=== PATIENT | male | born 1990 | race Caucasian/White ===

== ENCOUNTER 2016-11-12 21:38 | Inpatient (IN) | payer MEDICAID, OTHER ==
[~2016-11-12] VITALS: Ht 175.3 cm; Wt 59.8 kg
[2016-11-12] MEDS ORDERED: SODIUM CHLORIDE 0.9% 1,000ML IVBOLUS ONE (23:30)
[2016-11-13] MEDS ORDERED: CEFTAROLINE 600 MG in SODIUM CHLORIDE 0.9% 100 ML IV ONE (00:30)
[2016-11-13] MEDS ORDERED: IBUP-1222 PO (00:36)
[2016-11-13] MEDS ORDERED: SULF1TAB24 PO (00:36)
[2016-11-13 00:58] LABS: HEMATOCRIT 42.2 % (39.2-51.8); HEMOGLOBIN 14.4 g/dL (13.7-18.0); WHITE BLOOD COUNT 14.5 x10^3/uL (3.4-10)
[2016-11-13] MEDS ORDERED: LIDOCAINE 1%, 20ML ONE (01:11)
[2016-11-13] MEDS ORDERED: ONDANSETRON 2MG/ML, 2ML ONE (01:13)
[2016-11-13] MEDS ORDERED: MORPHINE SULFATE 4 MG/ML, 1ML ONE (01:13)
[2016-11-13] MEDS ORDERED: ONDANSETRON 2MG/ML, 2ML IVPush ONE (01:30)
[2016-11-13] MEDS ORDERED: MORPHINE SULFATE 4 MG/ML, 1ML IVPush PRN ×3 (01:30→18:30)
[2016-11-13] MEDS ORDERED: LIDOCAINE 1%, 20ML SQ ONE (01:30)
[2016-11-13 02:01] LABS: BLOOD UREA NITROGEN 15 mg/dL (7-18)
[2016-11-13] MEDS ORDERED: SODIUM CHLORIDE 0.9% 1,000 ML IV ONE (02:21)
[2016-11-13] MEDS ORDERED: ONDANSETRON 2MG/ML, 2ML IVPush PRN ×2 (02:30→04:00)
[2016-11-13] MEDS ORDERED: POTASSIUM CHLORIDE 20 MEQ in LACTATED RINGERS 1,000 ML IV SCH (03:35)
[2016-11-13] MEDS ORDERED: BISACODYL 10 MG SUPP PR PRN (04:00)
[2016-11-13] MEDS ORDERED: ACETAMINOPHEN 325 MG TABLET PO PRN (04:00)
[2016-11-13] MEDS: ENOXAPARIN 40 MG/0.4 ML SQ SCH (04:00)
[2016-11-13] MEDS ORDERED: DOCUSATE 100 MG CAPSULE PO PRN (04:00)
[2016-11-13] MEDS: CEFTAROLINE 600 MG in SODIUM CHLORIDE 0.9% 100 ML IV SCH ×2 (04:00→19:30)
[2016-11-13] MEDS ORDERED: POLYETHYLENE GLYCOL 17 GM PACKET PO PRN (04:00)
[2016-11-13 05:32] VITALS: BP 127/52
[2016-11-13 07:15] VITALS: BP 143/51
[2016-11-13 13:11] VITALS: BP 131/70
[2016-11-13] MEDS ORDERED: morphine SULFATE 10 MG/ML, 1ML IVPush ONE (14:30)
[2016-11-13] MEDS ORDERED: LORazepam 2 MG/ML, 1ML IVPush ONE (16:30)
[2016-11-13] MEDS ORDERED: OMNIPAQUE 350 MG/ML, 100ML BOTTLE ONE (18:15)
[2016-11-13 20:38] VITALS: BP 109/68
[2016-11-14 02:59] VITALS: BP 126/80
[2016-11-14] MEDS: ENOXAPARIN 40 MG/0.4 ML SQ SCH (04:00)
[2016-11-14 04:35] LABS: HEMATOCRIT 42.7 % (39.2-51.8); HEMOGLOBIN 14.3 g/dL (13.7-18.0); WHITE BLOOD COUNT 13.3 x10^3/uL (3.4-10)
[2016-11-14 04:50] LABS: BLOOD UREA NITROGEN 9 mg/dL (7-18)
[2016-11-14] MEDS: CEFTAROLINE 600 MG in SODIUM CHLORIDE 0.9% 100 ML IV SCH ×2 (08:04→19:15)
[2016-11-14 08:30] VITALS: BP 120/76
[2016-11-14] MEDS ORDERED: MIDAZOLAM 1 MG/ML, 2ML ONE (13:55)
[2016-11-14] MEDS ORDERED: FENTANYL PF 100 MCG/2ML ONE (13:55)
[2016-11-14 13:59] VITALS: BP 109/64
[2016-11-14] MEDS ORDERED: PROPOFOL 10 MG/ML, 20ML ONE (15:26)
[2016-11-14] MEDS ORDERED: ONDANSETRON 2MG/ML, 2ML ONE (15:26)
[2016-11-14] MEDS ORDERED: HYDROmorphone 1 MG/ML, 1ML ONE (15:45)
[2016-11-14] MEDS ORDERED: OXYcodone 5 MG/5 ML ORAL.SOL UDC ONE (16:28)
[2016-11-14] MEDS ORDERED: KETOROLAC 30 MG/1 ML IV PRN (16:30)
[2016-11-14] MEDS ORDERED: FENTANYL PF 100 MCG/2ML IV PRN (16:30)
[2016-11-14] MEDS ORDERED: HYDROcodone/APAP 7.5-325MG/15ML UDC PO PRN (16:30)
[2016-11-14] MEDS ORDERED: HYDROmorphone 1 MG/ML, 1ML IV PRN (16:30)
[2016-11-14] MEDS ORDERED: ONDANSETRON 2MG/ML, 2ML IVPush PRN (16:30)
[2016-11-14] MEDS ORDERED: MEPERIDINE/PF 25MG/0.5ML IVPush PRN (16:30)
[2016-11-14] MEDS ORDERED: OXYcodone 5 MG/5 ML ORAL.SOL UDC PO PRN (16:30)
[2016-11-14] MEDS ORDERED: MIDAZOLAM 1 MG/ML, 2ML IV PRN (16:30)
[2016-11-14] MEDS ORDERED: PROMETHAZINE 25 MG/ML, 1ML IV PRN (16:30)
[2016-11-14] MEDS ORDERED: ACETAMINOPHEN 325 MG TABLET PO PRN (16:30)
[2016-11-14 19:37] VITALS: BP 127/64
[2016-11-15 03:08] VITALS: BP 99/61
[2016-11-15] MEDS: ENOXAPARIN 40 MG/0.4 ML SQ SCH (04:08)
[2016-11-15 07:16] VITALS: BP 119/62
[2016-11-15] MEDS: CEFTAROLINE 600 MG in SODIUM CHLORIDE 0.9% 100 ML IV SCH ×2 (08:37→19:59)
[2016-11-15 13:43] VITALS: BP 112/62
[2016-11-15] MEDS ORDERED: ONDANSETRON 2MG/ML, 2ML IVPush PRN (15:00)
[2016-11-15] MEDS ORDERED: POLYETHYLENE GLYCOL 17 GM PACKET PO PRN (15:00)
[2016-11-15] MEDS ORDERED: BISACODYL 10 MG SUPP PR PRN (15:00)
[2016-11-15] MEDS ORDERED: DOCUSATE 100 MG CAPSULE PO PRN (15:00)
[2016-11-15 19:50] VITALS: BP 114/62
[2016-11-15] MEDS: ORAJEL 7GM TUBE MM PRN (22:12)
[2016-11-16 01:25] VITALS: BP 137/76
[2016-11-16] MEDS: ENOXAPARIN 40 MG/0.4 ML SQ SCH (03:21)
[2016-11-16] MEDS: ORAJEL 7GM TUBE MM PRN ×3 (03:21→19:43)
[2016-11-16] MEDS: ACETAMINOPHEN 325 MG TABLET PO PRN (04:18)
[2016-11-16] MEDS: MORPHINE SULFATE 4 MG/ML, 1ML IVPush PRN ×2 (04:42→13:49)
[2016-11-16 05:19] LABS: HEMATOCRIT 41.8 % (39.2-51.8); HEMOGLOBIN 13.9 g/dL (13.7-18.0); WHITE BLOOD COUNT 10.2 x10^3/uL (3.4-10)
[2016-11-16 05:22] LABS: BLOOD UREA NITROGEN 5 mg/dL (7-18)
[2016-11-16 06:42] VITALS: BP 119/73
[2016-11-16] MEDS: CEFTAROLINE 600 MG in SODIUM CHLORIDE 0.9% 100 ML IV SCH ×2 (07:58→19:43)
[2016-11-16 14:10] VITALS: BP 127/69
[2016-11-16 20:05] VITALS: BP 127/58
[2016-11-17 01:09] VITALS: BP 139/66
[2016-11-17] MEDS: ORAJEL 7GM TUBE MM PRN (01:26)
[2016-11-17] MEDS: ENOXAPARIN 40 MG/0.4 ML SQ SCH ×2 (02:49→03:44)
[2016-11-17 07:00] VITALS: BP 117/58
[2016-11-17] MEDS: CEFTAROLINE 600 MG in SODIUM CHLORIDE 0.9% 100 ML IV SCH ×2 (08:11→20:10)
[2016-11-17 12:25] VITALS: BP 131/58
[2016-11-17] MEDS: ACETAMINOPHEN 325 MG TABLET PO PRN (13:05)
[2016-11-17 19:32] VITALS: BP 130/65
[2016-11-18] MEDS: ENOXAPARIN 40 MG/0.4 ML SQ SCH (04:00)
[2016-11-18 05:43] VITALS: BP 130/70
[2016-11-18] MEDS: CEFTAROLINE 600 MG in SODIUM CHLORIDE 0.9% 100 ML IV SCH ×2 (07:57→19:45)
[2016-11-18 08:01] VITALS: BP 127/79
[2016-11-18] MEDS: MORPHINE SULFATE 4 MG/ML, 1ML IVPush PRN (14:46)
[2016-11-18 15:35] VITALS: BP 102/58
[2016-11-18 18:49] VITALS: BP 112/59
[2016-11-19 01:02] VITALS: BP 113/55
[2016-11-19] MEDS: ENOXAPARIN 40 MG/0.4 ML SQ SCH (03:42)
[2016-11-19 07:11] VITALS: BP 119/65
[2016-11-19] MEDS: CEFTAROLINE 600 MG in SODIUM CHLORIDE 0.9% 100 ML IV SCH ×2 (09:14→21:12)
[2016-11-19 14:00] VITALS: BP 113/55
[2016-11-19 16:48] VITALS: BP 112/55
[2016-11-19 19:34] VITALS: BP 121/59
[2016-11-20 02:00] VITALS: BP 128/66
[2016-11-20] MEDS: ENOXAPARIN 40 MG/0.4 ML SQ SCH (04:00)
[2016-11-20 07:55] VITALS: BP 110/62
[2016-11-20] MEDS: CEFTAROLINE 600 MG in SODIUM CHLORIDE 0.9% 100 ML IV SCH ×2 (09:23→20:22)
[2016-11-20 14:35] VITALS: BP 107/51
[2016-11-20 19:27] VITALS: BP 107/69
[2016-11-21 03:41] VITALS: BP 101/62
[2016-11-21] MEDS: ENOXAPARIN 40 MG/0.4 ML SQ SCH (04:00)
[2016-11-21] MEDS: ACETAMINOPHEN 325 MG TABLET PO PRN ×2 (06:00→19:28)
[2016-11-21] MEDS: DIPHENHYDRAMINE 25 MG CAPSULE PO SCH ×3 (06:00→18:25)
[2016-11-21 06:05] VITALS: BP 105/68
[2016-11-21 07:12] LABS: HEMATOCRIT 45.1 % (39.2-51.8); WHITE BLOOD COUNT 10.6 x10^3/uL (3.4-10)
[2016-11-21 07:23] LABS: BLOOD UREA NITROGEN 14 mg/dL (7-18)
[2016-11-21] MEDS: CEFTAROLINE 600 MG in SODIUM CHLORIDE 0.9% 100 ML IV SCH (08:14)
[2016-11-21 14:30] VITALS: BP 151/71
[2016-11-21] MEDS ORDERED: FAMOTIDINE 20 MG TABLET PO ONE (16:00)
[2016-11-21] MEDS ORDERED: DIPHENHYDRAMINE/ZINC CRM 2%, 30GM TP PRN (17:30)
[2016-11-21] MEDS: CLINDAMYCIN PMX 600MG/50ML 50 ML IV SCH (18:02)
[2016-11-21] MEDS: LACTOBACILLUS 1GM/ PACKET PO SCH ×2 (18:02→21:00)
[2016-11-21 19:02] VITALS: BP 112/71
[2016-11-22] MEDS: CLINDAMYCIN PMX 600MG/50ML 50 ML IV SCH ×3 (00:33→17:00)
[2016-11-22] MEDS: DIPHENHYDRAMINE 25 MG CAPSULE PO SCH ×4 (00:34→17:00)
[2016-11-22 02:00] VITALS: BP 123/77
[2016-11-22] MEDS: ENOXAPARIN 40 MG/0.4 ML SQ SCH (04:00)
[2016-11-22 04:19] VITALS: BP 123/77
[2016-11-22 08:43] VITALS: BP 101/59
[2016-11-22] MEDS: LACTOBACILLUS 1GM/ PACKET PO SCH ×3 (08:48→20:50)
[2016-11-22 14:00] VITALS: BP 130/66
[2016-11-22] MEDS ORDERED: DOCUSATE 100 MG CAPSULE PO PRN (15:00)
[2016-11-22] MEDS ORDERED: ONDANSETRON 2MG/ML, 2ML IVPush PRN (15:00)
[2016-11-22] MEDS ORDERED: POLYETHYLENE GLYCOL 17 GM PACKET PO PRN (15:00)
[2016-11-22] MEDS ORDERED: BISACODYL 10 MG SUPP PR PRN (15:00)
[2016-11-22 19:38] VITALS: BP 121/64
[2016-11-23] MEDS: DIPHENHYDRAMINE 25 MG CAPSULE PO SCH ×4 (00:27→18:13)
[2016-11-23] MEDS: CLINDAMYCIN PMX 600MG/50ML 50 ML IV SCH ×3 (00:27→17:25)
[2016-11-23 00:58] VITALS: BP 130/75
[2016-11-23] MEDS: ENOXAPARIN 40 MG/0.4 ML SQ SCH (03:21)
[2016-11-23] MEDS: LACTOBACILLUS 1GM/ PACKET PO SCH ×3 (08:59→21:24)
[2016-11-23 10:04] VITALS: BP 89/49
[2016-11-23 10:16] VITALS: BP 94/53
[2016-11-23] MEDS ORDERED: MEGESTROL ORAL.SUSP 40 MG/ML PO SCH (12:00)
[2016-11-23 14:03] VITALS: BP 138/71
[2016-11-23 19:10] VITALS: BP 124/75
[2016-11-24] MEDS: DIPHENHYDRAMINE 25 MG CAPSULE PO SCH ×4 (00:24→17:13)
[2016-11-24] MEDS: CLINDAMYCIN PMX 600MG/50ML 50 ML IV SCH ×3 (00:24→17:12)
[2016-11-24 01:06] VITALS: BP 121/72
[2016-11-24] MEDS: ENOXAPARIN 40 MG/0.4 ML SQ SCH (05:55)
[2016-11-24 08:00] VITALS: BP 91/56
[2016-11-24] MEDS: LACTOBACILLUS 1GM/ PACKET PO SCH ×3 (08:47→20:22)
[2016-11-24 14:00] VITALS: BP 123/61
[2016-11-24 19:12] VITALS: BP 117/64
[2016-11-25] MEDS: CLINDAMYCIN PMX 600MG/50ML 50 ML IV SCH ×3 (00:02→18:00)
[2016-11-25] MEDS: DIPHENHYDRAMINE 25 MG CAPSULE PO SCH ×3 (00:03→12:00)
[2016-11-25] MEDS: ENOXAPARIN 40 MG/0.4 ML SQ SCH (00:08)
[2016-11-25 05:20] VITALS: BP 109/72
[2016-11-25 08:32] VITALS: BP 108/58
[2016-11-25] MEDS: LACTOBACILLUS 1GM/ PACKET PO SCH ×3 (09:34→20:40)
[2016-11-25 15:40] VITALS: BP 119/61
[2016-11-25] MEDS ORDERED: DIPHENHYDRAMINE 25 MG CAPSULE PO PRN (18:00)
[2016-11-25 19:33] VITALS: BP 111/57
[2016-11-26 00:57] VITALS: BP 112/50
[2016-11-26] MEDS: CLINDAMYCIN PMX 600MG/50ML 50 ML IV SCH ×3 (02:00→18:23)
[2016-11-26] MEDS: ENOXAPARIN 40 MG/0.4 ML SQ SCH (03:55)
[2016-11-26 06:50] VITALS: BP 107/56
[2016-11-26] MEDS: LACTOBACILLUS 1GM/ PACKET PO SCH ×3 (10:20→20:35)
[2016-11-26 13:36] VITALS: BP 111/64
[2016-11-26 18:42] VITALS: BP 125/64
[2016-11-27 01:15] VITALS: BP 128/63
[2016-11-27] MEDS: CLINDAMYCIN PMX 600MG/50ML 50 ML IV SCH ×2 (02:22→11:21)
[2016-11-27] MEDS: ENOXAPARIN 40 MG/0.4 ML SQ SCH (04:00)
[2016-11-27 06:36] VITALS: BP 93/56
[2016-11-27 09:14] LABS: HEMATOCRIT 42.6 % (39.2-51.8); HEMOGLOBIN 14.3 g/dL (13.7-18.0); WHITE BLOOD COUNT 7.8 x10^3/uL (3.4-10)
[2016-11-27 09:17] LABS: BLOOD UREA NITROGEN 16 mg/dL (7-18)
[2016-11-27] MEDS: LACTOBACILLUS 1GM/ PACKET PO SCH ×3 (11:22→20:20)
[2016-11-27 12:40] VITALS: BP 115/54
[2016-11-27] MEDS: CLINDAMYCIN 300 MG CAPSULE PO SCH ×2 (17:50→23:49)
[2016-11-27 18:47] VITALS: BP 134/55
[2016-11-28] MEDS: ENOXAPARIN 40 MG/0.4 ML SQ SCH (03:41)
[2016-11-28 04:00] VITALS: BP 98/59
[2016-11-28] MEDS: CLINDAMYCIN 300 MG CAPSULE PO SCH ×4 (05:39→23:59)
[2016-11-28 07:01] VITALS: BP_SYST 106; BP_DIAS 53; BP_DIAS 62
[2016-11-28] MEDS: LACTOBACILLUS 1GM/ PACKET PO SCH ×3 (09:57→22:55)
[2016-11-28 14:00] VITALS: BP 106/68
[2016-11-28 18:31] VITALS: BP 108/68
[2016-11-29] VITALS: BP 109/66
[2016-11-29] MEDS: ENOXAPARIN 40 MG/0.4 ML SQ SCH (04:00)
[2016-11-29] MEDS: CLINDAMYCIN 300 MG CAPSULE PO SCH ×3 (06:11→17:44)
[2016-11-29 08:00] VITALS: BP 109/70
[2016-11-29] MEDS: LACTOBACILLUS 1GM/ PACKET PO SCH ×3 (11:22→21:30)
[2016-11-29] MEDS ORDERED: MEGESTROL 40MG TABLET PO SCH (12:30)
[2016-11-29] MEDS ORDERED: MEGESTROL ACETATE 400 MG/10 ML ML PO SCH (12:58)
[2016-11-29 13:52] VITALS: BP 112/67
[2016-11-29 19:40] VITALS: BP 133/77
[2016-11-29] MEDS ORDERED: BISACODYL 10 MG SUPP PR PRN (20:00)
[2016-11-29] MEDS ORDERED: DOCUSATE 100 MG CAPSULE PO PRN (20:00)
[2016-11-29] MEDS ORDERED: ONDANSETRON 2MG/ML, 2ML IVPush PRN (20:00)
[2016-11-29] MEDS ORDERED: POLYETHYLENE GLYCOL 17 GM PACKET PO PRN (20:00)
[2016-11-30] MEDS: CLINDAMYCIN 300 MG CAPSULE PO SCH ×5 (00:19→23:36)
[2016-11-30 01:47] VITALS: BP 112/66
[2016-11-30] MEDS: ENOXAPARIN 40 MG/0.4 ML SQ SCH (04:00)
[2016-11-30 08:36] VITALS: BP 95/59
[2016-11-30] MEDS: LACTOBACILLUS 1GM/ PACKET PO SCH ×3 (10:16→20:53)
[2016-11-30] MEDS: MEGESTROL ACETATE 400 MG/10 ML ML PO SCH (10:58)
[2016-11-30 15:40] VITALS: BP 100/54
[2016-11-30 20:52] VITALS: BP 110/59
[2016-12-01 01:35] VITALS: BP 106/56
[2016-12-01] MEDS: ENOXAPARIN 40 MG/0.4 ML SQ SCH (04:00)
[2016-12-01] MEDS: CLINDAMYCIN 300 MG CAPSULE PO SCH ×4 (05:38→22:39)
[2016-12-01 06:30] VITALS: BP 106/58
[2016-12-01] MEDS: LACTOBACILLUS 1GM/ PACKET PO SCH ×3 (09:33→20:18)
[2016-12-01] MEDS: MEGESTROL ACETATE 400 MG/10 ML ML PO SCH (09:33)
[2016-12-01 13:45] VITALS: BP 121/61
[2016-12-01 19:58] VITALS: BP 128/66
[2016-12-02] MEDS: ENOXAPARIN 40 MG/0.4 ML SQ SCH (04:00)
[2016-12-02] MEDS: CLINDAMYCIN 300 MG CAPSULE PO SCH ×3 (06:00→19:10)
[2016-12-02 08:00] VITALS: BP 103/63
[2016-12-02] MEDS: LACTOBACILLUS 1GM/ PACKET PO SCH ×3 (11:05→19:10)
[2016-12-02] MEDS: MEGESTROL ACETATE 400 MG/10 ML ML PO SCH (11:06)
[2016-12-02 13:56] VITALS: BP 96/57
[2016-12-02 20:00] VITALS: BP 143/62
[2016-12-03 03:00] VITALS: BP 110/62
[2016-12-03] MEDS: ENOXAPARIN 40 MG/0.4 ML SQ SCH (04:00)
[2016-12-03] MEDS: CLINDAMYCIN 300 MG CAPSULE PO SCH ×4 (06:00→17:01)
[2016-12-03] MEDS: LACTOBACILLUS 1GM/ PACKET PO SCH ×3 (08:06→19:41)
[2016-12-03] MEDS: MEGESTROL ACETATE 400 MG/10 ML ML PO SCH (08:06)
[2016-12-03 08:12] VITALS: BP 132/68
[2016-12-03 12:56] VITALS: BP 124/67
[2016-12-03 18:25] VITALS: BP 118/67
[2016-12-04] MEDS: CLINDAMYCIN 300 MG CAPSULE PO SCH ×4 (00:01→19:51)
[2016-12-04 03:33] VITALS: BP 100/55
[2016-12-04 08:05] VITALS: BP 132/63
[2016-12-04 08:09] LABS: HEMATOCRIT 43.3 % (39.2-51.8); HEMOGLOBIN 14.4 g/dL (13.7-18.0); WHITE BLOOD COUNT 8.5 x10^3/uL (3.4-10)
[2016-12-04 08:17] LABS: BLOOD UREA NITROGEN 18 mg/dL (7-18)
[2016-12-04] MEDS: ENOXAPARIN 40 MG/0.4 ML SQ SCH (09:00)
[2016-12-04] MEDS: LACTOBACILLUS 1GM/ PACKET PO SCH ×3 (10:45→19:51)
[2016-12-04 14:00] VITALS: BP 124/67
[2016-12-04 19:39] VITALS: BP 111/61
[2016-12-05 02:05] VITALS: BP 121/67
[2016-12-05] MEDS: CLINDAMYCIN 300 MG CAPSULE PO SCH ×4 (02:07→20:08)
[2016-12-05 07:41] VITALS: BP 109/63
[2016-12-05] MEDS: LACTOBACILLUS 1GM/ PACKET PO SCH ×3 (08:36→20:08)
[2016-12-05] MEDS: ENOXAPARIN 40 MG/0.4 ML SQ SCH (08:37)
[2016-12-05 14:30] VITALS: BP 113/69
[2016-12-05 19:25] VITALS: BP 125/65
[2016-12-06 00:04] VITALS: BP 119/60
[2016-12-06] MEDS: CLINDAMYCIN 300 MG CAPSULE PO SCH ×4 (02:02→19:56)
[2016-12-06 08:02] VITALS: BP 95/50
[2016-12-06] MEDS: LACTOBACILLUS 1GM/ PACKET PO SCH ×3 (08:24→19:57)
[2016-12-06] MEDS: ENOXAPARIN 40 MG/0.4 ML SQ SCH (08:25)
[2016-12-06 14:24] VITALS: BP 133/76
[2016-12-06] MEDS ORDERED: ONDANSETRON 2MG/ML, 2ML IVPush PRN (14:30)
[2016-12-06] MEDS ORDERED: DOCUSATE 100 MG CAPSULE PO PRN (14:30)
[2016-12-06] MEDS ORDERED: DIPHENHYDRAMINE 25 MG CAPSULE PO PRN (14:30)
[2016-12-06] MEDS ORDERED: POLYETHYLENE GLYCOL 17 GM PACKET PO PRN (14:30)
[2016-12-06] MEDS ORDERED: BISACODYL 10 MG SUPP PR PRN (14:30)
[2016-12-06 19:24] VITALS: BP 123/75
[2016-12-07 01:46] VITALS: BP 118/72
[2016-12-07] MEDS: CLINDAMYCIN 300 MG CAPSULE PO SCH ×4 (01:57→22:27)
[2016-12-07 08:11] VITALS: BP 109/62
[2016-12-07] MEDS: ENOXAPARIN 40 MG/0.4 ML SQ SCH (08:52)
[2016-12-07] MEDS: LACTOBACILLUS 1GM/ PACKET PO SCH ×3 (08:52→22:27)
[2016-12-07 14:14] VITALS: BP 121/68
[2016-12-07 19:50] VITALS: BP 114/68
[2016-12-08 01:28] VITALS: BP 122/76
[2016-12-08] MEDS: CLINDAMYCIN 300 MG CAPSULE PO SCH ×3 (04:59→16:59)
[2016-12-08] MEDS: ENOXAPARIN 40 MG/0.4 ML SQ SCH (08:02)
[2016-12-08] MEDS: LACTOBACILLUS 1GM/ PACKET PO SCH ×2 (08:02→16:59)
[2016-12-08 08:17] VITALS: BP 119/62
[2016-12-08 14:37] VITALS: BP 128/78
[2016-12-08] MEDS ORDERED: ACID1GRA3 PO (15:01)
[2016-12-08] MEDS ORDERED: CLIN300C8 PO (15:01)
== END 2016-12-08 17:42 | disposition home or self-care (01) | DRG 854 ==
LOC: ED 23:59 → EDIP 11-13 02:21 → 4NOR 11-13 04:48 → 3NW 11-13 13:05 → 3NE 11-17 15:43
PROC: 0J9D0ZZ Drainage of Right Upper Arm Subcutaneous Tissue and Fascia, Open Approach (ICD-10-PCS; principal; 2016-11-14 12:00)
DX: A41.9 Sepsis, unspecified organism (principal); L03.113 Cellulitis of right upper limb; E44.1 Mild protein-calorie malnutrition; L02.413 Cutaneous abscess of right upper limb; G80.9 Cerebral palsy, unspecified; K08.89 Other specified disorders of teeth and supporting structures; L27.0 Generalized skin eruption due to drugs and medicaments taken internally; R21 Rash and other nonspecific skin eruption; T36.1X5A Adverse effect of cephalosporins and other beta-lactam antibiotics, initial encounter
CPT/HCPCS: 10060; 36415; 70100; 80048; 82040; 83605; 83735; 84100; 84145; 85025; 87040; 87070; 87075; 87077; 87102; 87116; 87186; 87205; 87206; 96365; 96366; 96375; J0712; J1170; J1650; J2250; J2405; J2704; J3010; J3480; J3490; Q9967; J2060; J2270; J7030; J7120; Q0163